=== PATIENT | male | born 1955 | race African-American/Black ===

== ENCOUNTER 2017-07-27 14:50 | Emergency (ER) | payer OTHER ==
[2017-07-27 14:59] VITALS: BP 126/70; PULSE 82; TEMP 98.9; BMI 35.6
--- NOTE | 2017-07-27 15:07 | PDOC ---
History of Present Illness - General Chief Complaint: Cold Symptoms Stated Complaint: BODY PAIN,COUGH AND HEADACHE Time Seen by Provider: 07/27/17 14:58 - History of Present Illness Initial Comments: 07/27/17 15:07 61M with pmh of depression, anxiety and ?MR presents with cough, runny nose and generalized msk pain since Tuesday. Had a flu shot this year. No sick contact. No fever, no chills, no sore throat 07/27/17 15:07 07/27/17 15:33 07/27/17 17:44 Past History - Past Medical History Allergies/Adverse Reactions: Allergies Allergy/AdvReac Type Severity Reaction Status Date / Time No Known Allergies Allergy Verified 07/27/17 14:54 Home Medications: Ambulatory Orders Dextromethorphan Hb/Doxylamine [Robitussin Nighttime Cough Dm] 237 ml PO TID PRN #1 liquid 07/27/17 Humidifier 1 each MC PRN PRN #1 each 07/27/17 COPD: No Other medical history: denies - Suicide/Smoking/Psychosocial Hx Smoking History: Never smoked Hx Alcohol Use: No Drug/Substance Use Hx: No Substance Use Type: None Review of Systems - Review of Systems Able to Perform ROS?: Yes Is the patient limited Macedonian proficient: No Constitutional: No: Symptoms Reported HEENTM: No: Symptoms Reported Respiratory: Yes: See HPI. No: Symptoms reported Cardiac (ROS): No: Symptoms Reported ABD/GI: No: Symptoms Reported : No: Symptoms Reported Musculoskeletal: Yes: Joint Pain, Muscle Pain Integumentary: No: Symptoms Reported Neurological: Yes: Pre-Existing Deficit All Other Systems: Reviewed and Negative *Physical Exam - Vital Signs Last Vital Signs Temp Pulse Resp BP Pulse Ox 98.9 F 82 18 126/70 100 07/27/17 14:50 07/27/17 14:50 07/27/17 14:59 07/27/17 14:50 07/27/17 14:59 - Physical Exam General Appearance: Yes: Nourished, Appropriately Dressed, Obese. No: Apparent Distress HEENT: positive: Other (right eye abduction due to remote hx of trauma) Neck: negative: Tender Respiratory/Chest: positive: Lungs Clear, Normal Breath Sounds. negative: Chest Tender, Respiratory Distress Cardiovascular: positive: Regular Rhythm, Regular Rate, S1, S2 Gastrointestinal/Abdominal: positive: Normal Bowel Sounds, Protuberent. negative: Tender Musculoskeletal: positive: Normal Inspection. negative: CVA Tenderness Extremity: positive: Normal Capillary Refill Integumentary: positive: Normal Color, Dry, Warm Neurologic: positive: Fully Oriented, Alert, Normal Mood/Affect, Normal Response , Motor Strength 5/5 Medical Decision Making - Medical Decision Making 07/27/17 15:36 Flu swab pending. 07/27/17 17:44 Will treat for viral URI. 07/27/17 17:44 motrin for pain. *DC/Admit/Observation/Transfer Diagnosis at time of Disposition: Viral URI with cough - Discharge Dispostion Disposition: HOME Admit: No - Referrals - Patient Instructions Printed Discharge Instructions: How to Avoid a Cold or Flu, DI for Viral Upper Respiratory Infection -- Adult Additional Instructions: Follow up with primary care provider within 2-3 days. Come back to the Emergency Department for any new, worsening or concerning symptom. - Post Discharge Activity
--- NOTE | 2017-07-27 17:14 | PDOC ---
Attending Attestation - Resident Resident Name: GabrielleMega - ED Attending Attestation I have performed the following: I have examined & evaluated the patient, The case was reviewed & discussed with the resident, I agree w/resident's findings & plan, Exceptions are as noted - HPI HPI: 07/27/17 17:39 The patient is a 61 year old male, with a significant past medical history of anxiety, depression, who presents to the emergency room with cough, rhinorrhea and diffuse body aches for approx. one week. Patient reports the cough is dry. 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 Has not seen his PMD, came to the ED today for a check up. Denies headaches, stiff neck, CP, SOB, abd pain, rashes, urinary symptoms. He denies recent fever or chills. He denies recent nausea, vomiting, diarrhea or constipation. Allergies: NKA - Physicial Exam PE: 07/27/17 17:39 GENERAL: Awake, alert, and fully oriented, in no acute distress HEAD: No signs of trauma EYES: PERRLA, EOMI, sclera anicteric, conjunctiva clear ENT: Auricles normal inspection, hearing grossly normal, nares patent, oropharynx clear without exudates. Moist mucosa NECK: Normal ROM, supple, no lymphadenopathy, JVD, or masses LUNGS: Breath sounds equal, clear to auscultation bilaterally. No wheezes, and no crackles HEART: Regular rate and rhythm, normal S1 and S2, no murmurs, rubs or gallops ABDOMEN: Soft, nontender, normoactive bowel sounds. No guarding, no rebound. No masses EXTREMITIES: Normal range of motion, no edema. No clubbing or cyanosis. No cords, erythema, or tenderness NEUROLOGICAL: Normal speech, cranial nerves intact, negative pronator drift, 5/ 5 strength in all 4 extremities, normal sensation to light touch in all 4 extremities, normal cerebellar exam, normal gait, normal reflexes and tone SKIN: Warm, Dry, normal turgor, no rashes or lesions noted. - Medical Decision Making 07/27/17 17:44 61-year-old male presents with rhinorrhea, nonproductive cough, and body aches. Vitals within normal limits. Exam within normal limits. Likely viral syndrome. Symptoms present for 7 days and thus patient is out of the window for flu treatment. Will discharge patient to follow-up with primary care doctor within 1 -2 days. I discussed the physical exam findings, ancillary test results and final diagnoses with the patient. I answered all of the patient's questions. The patient was satisfied with the care received and felt comfortable with the discharge plan and treatment plan. The patient will call their primary care physician within 24 hours to arrange follow-up and will return to the Emergency Department with any new, persistent or worsening symptoms.
[2017-07-27] MEDS ORDERED: IBUPROFEN 600 MG TABLET (FP) PO ONE ×2 (17:40→17:44)
== END 2017-07-27 18:03 | disposition home or self-care (01) ==
LOC: FER 14:50
DX: J06.9 Acute upper respiratory infection, unspecified (principal); B97.89 Other viral agents as the cause of diseases classified elsewhere; R05 Cough; F32.9 Major depressive disorder, single episode, unspecified
CPT/HCPCS: 87804; 99282-25

== ENCOUNTER 2018-09-06 09:46 | Inpatient (IN) | payer OTHER ==
--- NOTE | 2018-07-25 09:16 | HP ---
DATE OF ADMISSION: 08/16/2018 DATE OF DICTATION: 06/15/2018 Patient to be admitted through the ambulatory surgical service at [place] in the near future; date to be determined. HISTORY: This is a 62-year-old man who presents for reduction and repair of a chronically incarcerated, complex ventral hernia. No underlying GI, , or respiratory complaints to suggest predisposition to hernia formation. 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 That likely may be a contributing factor. PAST MEDICAL HISTORY: Significant for arthritis, eye disease, and underlying anxiety/depressive disorder. No known history of heart disease; hypertension; diabetes; respiratory, renal, or hepatic insufficiency. PAST SURGICAL HISTORY: Significant for an appendectomy in 2016, as well as a right inguinal hernia repair (patient states he had no mesh placed at that time). ALLERGIES: None known. CURRENT MEDICATIONS: Benzodiazepines, Gabapentin, Aleve, baby aspirin. SOCIAL HISTORY: Negative tobacco. Patient did smoke up until 2003. Negative alcohol. Has not consumed alcohol in several years. FAMILY HISTORY: Mother: A history of diabetes as well as his siblings. REVIEW OF SYSTEMS: Nil. PHYSICAL EXAMINATION: Abdomen: Large, protuberant. A large hernia involving the central ring of the abdomen and extending up into the upper midline. Partially but not entirely reducible. Skin: There is a multitude of skin lesions and scars about the abdominal wall as well as the upper posterior torso. Patient questioned about a potential underlying chronic dermatologic condition. He states that these lesions have been present for many years. He is not seen and followed by the dermatology service. IMPRESSION: Chronically incarcerated ventral hernia. PLAN: Reduction and repair of chronically incarcerated ventral hernia with mesh and bilateral component separation. Given the skin lesions, the risk of mesh infection would be significantly higher as they may be associated with staphylococcus. I have asked the patient to consider dermatological consultation preoperatively. If the lesions remain persistent at the time of surgery, would repair the hernia with a dissolvable or biologic mesh for fear of potential mesh infection given the skin lesions. It is interesting that his right inguinal hernia was repaired without mesh and that may have been the same indication for no placement of mesh at that time , although that information is not available. Indications, alternatives, possible complications reviewed. Consent obtained. Patient to be seen preoperatively by Dr. Alejo Encarnacion. Please refer to his notes for those medical details. MIRANDA MUNOZ M.D. BHAVNA/[id number] cc: Alejo Encarnacion MD MTDD
[2018-09-05 12:51] VITALS: BMI 33.7
[2018-09-06] MEDS ORDERED: TAMSULOSIN HCL 0.4 MG CAP ONE (10:40)
[2018-09-06] MEDS ORDERED: TAMSULOSIN HCL 0.4 MG CAP PO ONE (10:40)
[2018-09-06] MEDS ORDERED: ceFAZolin SODIUM 1 GM VIAL ONE (10:42)
[2018-09-06] MEDS ORDERED: ACETAMINOPHEN 325 MG TABLET (FP) PO PRN (10:53)
[2018-09-06] MEDS ORDERED: oxyCODONE HCL 5 MG TABLET PO PRN (10:53)
[2018-09-06] MEDS ORDERED: D5-1/2NS+20 MEQ KCL - 20 MEQ/1,000 ML INFUS.BAG IV SCH (11:00)
[2018-09-06] MEDS ORDERED: BUPIVACAINE LIPOSOME/PF (EXPAREL) 266 MG/20 ML VIAL ONE (11:20)
[2018-09-06] MEDS ORDERED: BUPIVACAINE HCL/PF 0.5% (5MG/ML) 10 ML VIAL ONE (11:20)
[2018-09-06] MEDS ORDERED: MIDAZOLAM HCL 2 MG/2 ML SINGLE DOSE VIAL ONE ×2 (11:21)
[2018-09-06] MEDS ORDERED: SUCCINYLCHOLINE CHLORIDE 200 MG/10 ML VIAL ONE (11:55)
[2018-09-06] MEDS ORDERED: PROPOFOL 20 ML ONE ×2 (11:55)
[2018-09-06] MEDS ORDERED: ROCURONIUM BROMIDE 50 MG/5 ML VIAL ONE ×2 (11:55→12:36)
[2018-09-06] MEDS ORDERED: ceFAZolin SODIUM 1 GM VIAL IVPB ONE (12:10)
[2018-09-06] MEDS ORDERED: fentaNYL CITRATE 250 MCG/5 ML VIAL ONE (12:28)
[2018-09-06] MEDS ORDERED: NEOSTIGMINE METHYLSULFATE 0.5 MG/1 ML - 10 ML MDV ONE (12:37)
[2018-09-06] MEDS ORDERED: ONDANSETRON 4 MG/2 ML VIAL ONE (12:37)
[2018-09-06] MEDS ORDERED: DEXAMETHASONE SOD PHOSPHATE 4 MG/1 ML VIAL ONE (12:37)
[2018-09-06] MEDS ORDERED: GLYCOPYRROLATE 0.2 MG/1 ML VIAL ONE (12:37)
[2018-09-06] MEDS ORDERED: KETOROLAC TROMETHAMINE 30 MG/1 ML VIAL ONE (12:37)
[2018-09-06] MEDS ORDERED: oxyCODONE HCL 5 MG TABLET PO ONE (13:54)
[2018-09-06] MEDS ORDERED: ONDANSETRON 4 MG/2 ML VIAL IVPUSH PRN (13:54)
[2018-09-06] MEDS: ACETAMINOPHEN 1000 MG/100 ML VIAL (NON FORMULARY) IVPB ONE ×2 (14:25→17:49)
[2018-09-06] MEDS ORDERED: ACETAMINOPHEN INJECTION 100 ML IVPB ONE (14:27)
[2018-09-06] MEDS: LACTATED RINGERS SOLUTION 1,000 ML IV SCH (17:49)
[2018-09-06] MEDS: morphine SULFATE 4 MG/ML VIAL IVPB PRN (18:10)
[2018-09-06] MEDS ORDERED: ALPRAZolam 0.25 MG TABLET PO ONE (20:00)
[2018-09-07] MEDS: morphine SULFATE 4 MG/ML VIAL IVPB PRN ×2 (00:07→06:01)
[2018-09-07] MEDS: LACTATED RINGERS SOLUTION 1,000 ML IV SCH (06:01)
--- NOTE | 2018-09-07 09:52 | OP ---
DATE OF OPERATION: 09/06/2018 PREOPERATIVE DIAGNOSIS: Complex chronically incarcerated ventral hernia. POSTOPERATIVE DIAGNOSIS: Complex chronically incarcerated ventral hernia. PROCEDURE: Open bilateral component separation repair of complex incarcerated ventral hernia with mesh/partial omentectomy. OPERATING SURGEON: Anupam Lawrence MD SLOTS MANAGER: Luis Avina MD ANESTHESIA: Krishna Singleton MD (general) HISTORY: This is a 62-year-old man who presents for repair of a complex longstanding chronically incarcerated ventral hernia. Patient is with a chronic dermatologic condition. I discussed that situation with the patient and had advised a preoperative dermatology consultation, but the patient declined. I explained to the patient that I would use an absorbable mesh considering the increased risk of a mesh infection given the multitude of skin lesions with some pustules about the abdominal wall. He understood and agreed. Indications, alternatives, and possible complications reviewed. Consent was obtained. DESCRIPTION OF PROCEDURE: With the patient in the supine position, under general anesthesia, the abdomen was prepped and draped in the usual sterile fashion using chlorhexidine. An incision was made directly over the hernia beginning in the supraumbilical midline with the excision extending down past the umbilicus. The incision was deepened into the subcutaneous space. The obvious hernia sac was easily encountered and cleaned to the level of the fascial ring. The sac was opened, found to contain a portion of incarcerated omentum. A portion of the omentum was removed. The rest of the omentum was reduced. First directing our attention to the patients right side, the right retrorectus space was created using sharp dissection. This dissection continued in the inferior, lateral, and superior directions ultimately arriving at the junction of the rectus musculature with the oblique and underlying right and transversus muscles. Separation of the right oblique musculature from the underlying transversus muscle ensued. The retrorectus space dissection was then carried out in this plane, and again, continued inferiorly, laterally, and superiorly. Now directing our attention to the left side, the left retrorectus space was created using sharp dissection. Again, this dissection was carried out to the level of the junction of the left rectus with the left oblique and underlying transversus muscles. The left oblique musculature was then from the underlying left transversus muscle. The retrorectus space dissection was carried out into this plane, and continued inferiorly, laterally, and superiorly once again. After adequate hemostasis, the posterior midline was reapproximated using 2-0 Vicryl suture material. Composite mesh was made at the operating room table using a piece of 8 x 10 inch Phasix Mesh which was sutured to a piece of OviTex mesh of a similar size. This was accomplished using interrupted 3-0 Vicryl sutures at the periphery. The mesh was then soaked and then placed in the retrorectus space with the OviTex side down and the Phasix side up. The space was filled with the mesh. It was tacked circumferentially with an AbsorbaTacker in counter-palpation. The wound was irrigated, the irrigant retrieved. Adequate hemostasis was ensured. The anterior fascia was then approximated using both interrupted and continuous 0 PDS sutures, leaving the mesh entirely in the retrorectus space. The subcutaneous tissues were irrigated and a Shay-Garcia drain was placed and the capacious subcutaneous space was entered through a separate stab wound at the level of the right lower abdominal wall, where it was tacked to the skin with 2-0 silk suture material. Ultimately, the skin edges were approximated using metallic clips. NEEDLE AND INSTRUMENT COUNT: Correct. ESTIMATED BLOOD LOSS: Minimal. SPECIMEN: Portion of omentum. DRAINS: One [place]. IMPLANT: Phasix/OviTex mesh. Patient tolerated the procedure. Procedure was terminated. Gwendolyn [id number] cc: Alejo Encarnacion MD [facility]
[2018-09-07] MEDS ORDERED: PANTOPRAZOLE SODIUM 40 MG VIAL IVPUSH SCH (10:00)
[2018-09-07] MEDS ORDERED: ENOXAPARIN NA (PORCINE) 40 MG/0.4 ML DISP.SYRIN SQ SCH (10:00)
[2018-09-07 14:00] VITALS: BP 153/85; PULSE 80; TEMP 98.1
--- NOTE | 2018-09-07 14:25 | DS ---
DATE OF ADMISSION: 09/06/2018 DATE OF DISCHARGE: 09/07/2018 ADMITTING DIAGNOSES: 1. Complex ventral hernia. 2. Urinary retention with pre-existing chronic obstructive pulmonary disease. DISCHARGE DIAGNOSES: 1. Complex ventral hernia. 2. Urinary retention with pre-existing chronic obstructive pulmonary disease. BRIEF HISTORY: A 62-year-old male with a complex ventral hernia. He was admitted to [facility] on September 06, 2018 and underwent a repair of this hernia utilizing mesh as well as component separation. Please reference Dr. Anupam De Luna operative report for further details. Postoperatively, he developed urinary retention which was treated with straight catheterization. He is being discharged home today, September 07, 2018. He is ambulating, he is voiding, and he is tolerating diet. He has no fever at the time of discharge. His Shay-Garcia drain is draining serosanguineous fluid. He will go home with his Shay-Garcia drain which will stay in approximately 1 week. He will record the amount and empty it daily or sooner if necessary. He will sponge bathe only. He will resume his usual home medications as well as have a new prescription for Percocet which he will take as needed for pain. He will not lift. He will not drive. He is on a regular diet. He will follow with Dr. Lawrence next week to evaluate it for drain removal. DO REYNA HONG/[id number]
--- NOTE | 2018-09-08 15:35 | PATH ---
Surgical Pathology Report Patient Name: KRISTINA CARRANZA Med. Rec. #: [id number] /Age/Gender: 1955 (Age: 62) / M Account: [id number] Location: [facility] MED/SURG Taken: 09/06/2018 Received: 09/07/2018 Reported: 09/08/2018 Physicians: Luis Lawrence M.D. Specimen(s) Received OMENTUM Clinical History Unspecified ventral hernia/hernia with obstruction without gangrene Final Diagnosis PORTION OF OMENTUM, OPEN REDUCTION AND REPAIR INCARCERATED VENTRAL HERNIA: UNREMARKABLE OMENTAL ADIPOSE TISSUE. Electronically Signed Surekha Pool M.D. Gross Description Received in formalin labeled "portion of omentum," is a 6.3 x 4.0 x 0.5 cm portion of yellow, lobulated adipose tissue, consistent with a portion of omentum. No lesions or areas of hemorrhage or necrosis are identified. Director Operations Broadcast sections are submitted in one cassette. 09/07/2018 [facility]09/07/2018
== END 2018-09-07 15:42 | disposition home or self-care (01) | DRG 355 ==
LOC: JASUSAT 09:46 → JSAMEDAYSX 10:53 → J8W 17:40
PROVIDERS: ADMIT Surgery; ATTEND Surgery
PROC: 0DBU0ZZ Excision of Omentum, Open Approach (ICD-10-PCS; 2018-09-06)
PROC: 0WUF0JZ Supplement Abdominal Wall with Synthetic Substitute, Open Approach (ICD-10-PCS; principal; 2018-09-06 13:00)
DX: K43.6 Other and unspecified ventral hernia with obstruction, without gangrene (principal); J44.9 Chronic obstructive pulmonary disease, unspecified; R33.9 Retention of urine, unspecified
CPT/HCPCS: 88305-TC; 94010; 94760; J0131